=== PATIENT | male | born 1980 | race American Indian/Alaskan Native ===

== ENCOUNTER 2022-01-05 10:24 | Outpatient (CLI) | payer OTHER ==
--- NOTE | 2022-01-05 15:16 | Cat Scan Report ---
CT CHEST, ABDOMEN, AND PELVIS WITHOUT CONTRAST INDICATION / CLINICAL INFORMATION: R31.9. Hematuria TECHNIQUE: Axial CT images were obtained through the chest, abdomen, and pelvis without contrast. All CT scans a t this location are performed using CT dose reduction for ALARA by means of automated exposure contro l. COMPARISON: None available FINDINGS: CHEST: No focal consolidation, pleural effusion or pneumothorax. Heart and aorta appear normal. No me diastinal or hilar adenopathy. No significant coronary artery disease. No dominant adenopathy ABDOMEN/PELVIS: Within limits of noncontrast exam the liver, spleen, adrenal glands, upper GI tract a ppear normal. Gallbladder appears normal. No definite renal or ureteral stones are seen. No hydroneph rosis. No bowel obstruction is seen. Appendix appears normal. Urinary bladder is unremarkable. No carlitos e fluid in the abdomen or pelvis. No acute bone findings. Kidneys are asymmetric in size of left kidney larger than the right no definite renal or ureteral sto fredy are seen. SKELETAL SYSTEM: No significant abnormality. IMPRESSION: 1. Asymmetric renal size with enlargement left kidney. No definite renal stones are seen. Renal ultra sound could be performed for follow-up. No hydronephrosis. Signer Name: Ventura Lance MD Signed: 01/05/2022 3:11 PM Workstation Name: [id number]
== END 2022-01-05 10:25 | disposition home or self-care (01) ==
LOC: CT 10:24
DX: Z01.89 Encounter for other specified special examinations (principal); N28.81 Hypertrophy of kidney; R94.4 Abnormal results of kidney function studies; R31.9 Hematuria, unspecified
CPT/HCPCS: 71250; 74176